=== PATIENT | male | born 1970 | race Caucasian/White ===

== ENCOUNTER 2017-02-21 21:27 | Emergency (ER) | payer MEDICAID ==
[2017-02-21 22:45] VITALS: BP 127/98
== END 2017-02-22 03:54 | disposition left against medical advice (07) ==
LOC: ER 21:27
DX: Z53.21 Procedure and treatment not carried out due to patient leaving prior to being seen by health care provider (principal)

== ENCOUNTER 2017-02-24 19:59 | Emergency (ER) | payer MEDICAID ==
[2017-02-24] MEDS ORDERED: IBUPROFEN 800 MG TABLET PO ONE (20:21)
[2017-02-24] MEDS ORDERED: TRAMADOL HCL 50 MG TABLET PO ONE (20:21)
--- NOTE | 2017-02-24 20:27 | ER Document Report ---
HPI - HPI Patient complains to provider of: injury to his distal left femur Onset: Other - Saturday Onset/Duration: Sudden Quality of pain: Achy, Throbbing Pain Level: 5 Context: 46-year-old male had a heavy annette drop on his left distal femur while he was working on his mother's car Saturday. He came to the emergency room and had to leave because it was too busy. He tried to work yesterday and he couldn't and today it is difficult to even bear weight on this leg. No hip pain and no lower leg pain. Associated Symptoms: None Exacerbated by: Walking Relieved by: Denies Similar symptoms previously: No Recently seen / treated by doctor: No - ROS ROS below otherwise negative: Yes Systems Reviewed and Negative: Yes All other systems reviewed and negative - DERM Skin Color: Normal Past Medical History - General Information source: Patient - Social History Smoking Status: Current Every Day Smoker Frequency of alcohol use: None Drug Abuse: None Lives with: Spouse/Significant other - His will drive him home Family History: Reviewed & Not Pertinent Patient has suicidal ideation: No Patient has homicidal ideation: No Pulmonary Medical History: Reports: Hx COPD Renal/ Medical History: Denies: Hx Peritoneal Dialysis Musculoskeltal Medical History: Reports Hx Musculoskeletal Deformity, Reports Hx Musculoskeletal Trauma Traumatic Medical History: Reports: Hx Fractures Past Surgical History: Reports: Hx Appendectomy - Immunizations Immunizations up to date: Yes Hx Diphtheria, Pertussis, Tetanus Vaccination: Yes Vertical Provider Document - CONSTITUTIONAL Agree With Documented VS: Yes Exam Limitations: No Limitations - INFECTION CONTROL TRAVEL OUTSIDE OF THE [place] IN LAST 30 DAYS: No - HEENT HEENT: Normocephalic - NECK Neck: Supple - RESPIRATORY Respiratory: Breath Sounds Normal, No Respiratory Distress O2 Sat by Pulse Oximetry: 97 - CARDIOVASCULAR Cardiovascular: Regular Rate, Regular Rhythm - MUSCULOSKELETAL/EXTREMETIES Musculoskeletal/Extremeties: Tender, Eccymosis. negative: Edema Notes: Patient able to extend leg due to distal femur muscle pain. He thinks it is tendons. There is ecchymosis over the patella and medial knee. The patient draws away and yells out in pain with minimal touch. No deformity or knee effusion. Knee is not hot. - NEURO Level of Consciousness: Awake, Alert - DERM Integumentary: Warm, Dry Course - Re-evaluation Re-evalutation: 02/24/17 20:58 X-ray is negative, treated with Yoav wrap and crutches - Vital Signs Vital signs: Temp Pulse Resp BP Pulse Ox 98.1 F 95 18 118/84 97 02/24/17 20:13 02/24/17 20:13 02/24/17 20:13 02/24/17 20:13 02/24/17 20:13 Discharge - Discharge Clinical Impression: Contusion of left thigh Qualifiers: Encounter type: initial encounter Qualified Code(s): S70.12XA - Contusion of left thigh, initial encounter Condition: Good Instructions: Contusion ([facility]), Use of Crutches ([facility]), Anti-Inflammatory Medication ([facility]), Oral Narcotic Medication ([facility]), Yoav Wrap ([facility]) Additional Instructions: crutches few days to er if worse the xray is negative for fracture Please complete the patient satisfaction survey if you get one, and return it.. If you do not receive a survey, then you can go to the [facility] website, [email or web address] and place your comments about your very good care. Thank you very much. It was a pleasure being your medical provider today. Prescriptions: Hydrocodone Bit/Acetaminophen [Hydrocodon-Acetaminophen 5-325] 1 - 2 each PO Q4HP PRN #15 tablet PRN Reason: Ibuprofen [Motrin 800 mg Tablet] 800 mg PO Q8HP PRN #30 tablet PRN Reason: Forms: Return to Work Referrals: SANDRA MANLEY MD [Primary Care Provider] - Follow up tomorrow
[2017-02-24] MEDS ORDERED: HYDROCODONE/ACETAMINOPHEN 5-325 MG TABLET PO ONE (20:57)
[2017-02-24 21:20] VITALS: BP 125/88
== END 2017-02-24 21:20 | disposition home or self-care (01) ==
LOC: ER 19:59
DX: S70.12XA Contusion of left thigh, initial encounter (principal); W22.8XXA Striking against or struck by other objects, initial encounter; F17.200 Nicotine dependence, unspecified, uncomplicated
CPT/HCPCS: 99283; 73562; J3490

== ENCOUNTER 2017-10-06 13:55 | Emergency (ER) | payer MEDICAID ==
[2017-10-06 14:05] VITALS: BP 118/79
[2017-10-06] MEDS ORDERED: IBUPROFEN 800 MG TABLET PO ONE (14:53)
--- NOTE | 2017-10-06 14:57 | ER Document Report ---
ED Fall - General Chief Complaint: Rib Pain Stated Complaint: FALL/RIB PAIN Time Seen by Provider: 10/06/17 14:42 Mode of Arrival: Ambulatory Information source: Patient Notes: 27-year-old male presents to ED for complaint of right rib and flank pain after he fell 4 days ago while carrying boxes landing on the corner of a microwave. He states he was helping a friend move when he tripped. He did have bruising but that is much improved. He states it hurts to move or to take deep breaths. Patient speaks in full sentences and does walk guarding the right flank. TRAVEL OUTSIDE OF THE [place] IN LAST 30 DAYS: No - HPI Occurred: Other - 4 days ago Where: Indoors, Neighbor's Context: Tripped Associated symptoms: None Location of injury/pain: Other - Right ribs and flank Quality of pain: Sharp, Throbbing Severity: Moderate Pain Level: 3 - Related data Allergies/Adverse Reactions: No Known Allergies Allergy (Verified 12/30/14 11:53) Past Medical History - General Information source: Patient - Social History Smoking Status: Current Every Day Smoker Cigarette use (# per day): Yes - ppd Chew tobacco use (# tins/day): No Smoking Education Provided: Yes - less than 2 min Frequency of alcohol use: None Drug Abuse: None Occupation: Construction Lives with: Family Family History: Arthritis, Hyperlipidemia, Malignancy. denies: CAD, COPD, CVA, DM, Hypertension, Thyroid Disfunction Patient has suicidal ideation: No Patient has homicidal ideation: No - Past Medical History Cardiac Medical History: Reports: None Pulmonary Medical History: Reports: Hx COPD EENT Medical History: Reports: None Neurological Medical History: Reports: None Endocrine Medical History: Reports: None Renal/ Medical History: Reports: None Malignancy Medical History: Reports None GI Medical History: Reports: None Musculoskeltal Medical History: Reports Hx Musculoskeletal Deformity, Reports Hx Musculoskeletal Trauma Skin Medical History: Reports None Psychiatric Medical History: Reports: None Traumatic Medical History: Reports: Hx Fractures - Ribs and boxer fracture Infectious Medical History: Reports: None Past Surgical History: Reports: Hx Appendectomy, Hx Oral Surgery - Dental surgery - Immunizations Immunizations up to date: Yes Hx Diphtheria, Pertussis, Tetanus Vaccination: Yes Review of Systems - Review of Systems Constitutional: No symptoms reported EENT: No symptoms reported Cardiovascular: No symptoms reported Respiratory: Hurts to breathe Gastrointestinal: No symptoms reported Genitourinary: Flank pain - Fell on a microwave landing on his right flank and ribs Male Genitourinary: No symptoms reported Musculoskeletal: No symptoms reported Skin: No symptoms reported Hematologic/Lymphatic: No symptoms reported Neurological/Psychological: No symptoms reported -: Yes All other systems reviewed and negative Physical Exam - Vital signs Vitals: Temp Pulse Resp BP Pulse Ox 97.5 F 91 20 118/79 97 10/06/17 14:05 10/06/17 14:05 10/06/17 14:05 10/06/17 14:05 10/06/17 14:05 Interpretation: Normal - General General appearance: Appears well, Alert - HEENT Head: Normocephalic, Atraumatic Eyes: Normal Pupils: PERRL - Respiratory Respiratory status: No respiratory distress Chest status: Tender - Right lower ribs and flank area, Pain on movement, Pain with cough, Pain with deep breathing Breath sounds: Normal Chest palpation: Normal - Cardiovascular Rhythm: Regular Heart sounds: Normal auscultation Murmur: No - Abdominal Inspection: Normal Distension: No distension Bowel sounds: Normal Tenderness: Nontender Organomegaly: No organomegaly - Back Back: Normal, CVA tenderness - Right flank area posterior - Extremities General upper extremity: Normal inspection, Nontender, Normal color, Normal ROM , Normal temperature General lower extremity: Normal inspection, Nontender, Normal color, Normal ROM , Normal temperature, Normal weight bearing. No: Pinky's sign - Neurological Neuro grossly intact: Yes Cognition: Normal Orientation: AAOx4 Luis Alberto Coma Scale Eye Opening: Spontaneous Luis Alberto Coma Scale Verbal: Oriented [place] Coma Scale Motor: Obeys Commands [place] Coma Scale Total: 15 Speech: Normal Motor strength normal: LUE, RUE, LLE, RLE Sensory: Normal - Psychological Associated symptoms: Normal affect, Normal mood - Skin Skin Temperature: Warm Skin Moisture: Dry Skin Color: Normal Course - Re-evaluation Re-evalutation: 10/06/17 15:23 States she went in to see the patient and do his assessment and then another nurse saw him walking out she stopped them as to what was going on she states that he told her that if he wanted to get any pain medicine and he was just going to sit here and hurt he might as well go home and hurt. She explained to him that she was trying to get him to x-ray he said he did not need x-rays or ultrasounds or urine. He stated that if he had to sit here in her demise will go home and hurt. - Vital Signs Vital signs: Temp Pulse Resp BP Pulse Ox 97.5 F 91 20 118/79 97 10/06/17 14:05 10/06/17 14:05 10/06/17 14:05 10/06/17 14:05 10/06/17 14:05 Discharge - Discharge Clinical Impression: Right posterior rib contusion, Right flank contusion Disposition: ELOPED
== END 2017-10-06 15:15 | disposition left against medical advice (07) ==
LOC: ER 13:55
DX: S20.211A Contusion of right front wall of thorax, initial encounter (principal); S30.1XXA Contusion of abdominal wall, initial encounter; R07.81 Pleurodynia; W19.XXXA Unspecified fall, initial encounter; F17.210 Nicotine dependence, cigarettes, uncomplicated
CPT/HCPCS: 99281